=== PATIENT | female | born 1980 | race Caucasian/White ===

== ENCOUNTER 2023-01-27 21:50 | Emergency (ER) | payer OTHER, MEDICAID ==
[2023-01-27] MEDS ORDERED: Ondansetron 4 MG Tab.DIS ONE (22:00)
[2023-01-27] MEDS ORDERED: Amoxicillin 500 MG Cap ONE (22:00)
[2023-01-27] MEDS: cefTRIAXone 1 GM Vial IM ONE (22:32)
== END 2023-01-27 22:41 | disposition home or self-care (01) ==
LOC: LB.ED 21:50
DX: L03.211 Cellulitis of face (principal); I10 Essential (primary) hypertension; J45.909 Unspecified asthma, uncomplicated; Z91.040 Latex allergy status; Z88.5 Allergy status to narcotic agent; Z88.8 Allergy status to other drugs, medicaments and biological substances; Z79.51 Long term (current) use of inhaled steroids; Z79.899 Other long term (current) drug therapy
CPT/HCPCS: 96372; 99283; A9270; J0696; Q0162